=== PATIENT | male | born 1955 | race Caucasian/White ===

== ENCOUNTER 2022-01-12 11:08 | Day surgery (SDC) | payer MEDICARE, BC ==
[~2022-01-12] VITALS: Ht 182.9 cm; Wt 110.5 kg
[2022-01-12] MEDS ORDERED: CARV25 (11:51)
[2022-01-12] MEDS ORDERED: SILD50TA (11:51)
[2022-01-12] MEDS ORDERED: ROSU5 (11:51)
== END 2022-01-12 13:12 | disposition home or self-care (01) ==
LOC: ORSCSDS 11:08
PROVIDERS: Internal Medicine Gastroenterology
PROC: 0DJD8ZZ Inspection of Lower Intestinal Tract, Via Natural or Artificial Opening Endoscopic (ICD-10-PCS; principal; 2022-01-12 13:00)
DX: Z12.11 Encounter for screening for malignant neoplasm of colon (principal); D12.6 Benign neoplasm of colon, unspecified; K57.30 Diverticulosis of large intestine without perforation or abscess without bleeding; K64.4 Residual hemorrhoidal skin tags; I10 Essential (primary) hypertension; E78.5 Hyperlipidemia, unspecified; Z85.51 Personal history of malignant neoplasm of bladder; Z79.899 Other long term (current) drug therapy; Z87.891 Personal history of nicotine dependence; E66.9 Obesity, unspecified; Z68.34 Body mass index [BMI] 34.0-34.9, adult
CPT/HCPCS: J0330; J0461; J2405; J2704; J7120; Q9968